=== PATIENT | female | born 2000 | race Caucasian/White ===

== ENCOUNTER 2024-10-19 11:54 | Emergency (ER) | payer MEDICAID, SELFPAY ==
[2024-10-19 11:55] VITALS: BP 128/71; PULSE 96; RESP 16; TEMP 36.3; O2SAT 99; BMI 34.9
--- NOTE | 2024-10-19 12:11 | EDS_ITS ---
HPI HPI - URI History of Present Illness Chief Complaint: Cold Sx Informant: patient Onset/Context/Timing Onset: Days Context: Gradual Onset Timing: Continuous Current Severity: Mild Maximum Severity: Mild Associated Symptoms Associated Symptoms: Positive for Nasal Congestion, Myalgias, Nausea, Vomiting and Nonproductive cough; Negative for Diarrhea Narrative Narrative: 24-year-old female no stated past medical history. Currently she is 10 weeks she is due in April 2025. Complaining of URI symptoms. Her stepfather had similar symptoms recently. She is also had some nausea and vomiting. Things that may be secondary to her preg kelly. She denies any dysuria. Nonproductive cough. No fever. No abdominal pain. No vaginal bleeding. Prior similar symptoms: Yes Recent Illness/Hospitalization: No ROS ROS ED ROS Narrative Cough. Nausea and vomiting. Constitutional Constitutional ED: Denies chills or fever(s) Eyes Eyes: Denies blurry vision ENT ENT ED: Reports rhinorrhea and sore throat; Denies ear pain Cardiovascular Cardiovascular: Denies chest pain Respiratory/Chest Respiratory/Chest: Reports cough; Denies dyspnea on exertion Gastrointestinal Gastrointestinal: Reports nausea and vomiting; Denies abdominal pain, constipation, diarrhea or melena Genitourinary Genitourinary ED: Denies dysuria or hematuria Musculoskeletal Musculoskeletal: Denies arthralgias, back pain or myalgias Integumentary Denies abscess or Abrasions Neurologic Neurologic: Denies headache(s) Psychiatric Psychiatric: Denies anxiety or depression Endocrine Endocrinology: Denies cold intolerance, heat intolerance, polydipsia, polyphagia or polyuria Hematologic/Lymphatic Hematologic/Lymphatic: Denies easy bleeding, easy bruising or lymphadenopathy Allergic/Immunologic Allergic/Immunologic ED: Denies mouth swelling, tongue swelling or urticaria PFSH PFSH no medical history Allergy/AdvReac Type Severity Reaction Status Date / Time No Known Allergies Allergy Verified 10/19/24 11:57 no surgical history EXAM Physical Exam Narrative Exam Narrative: 24-year-old female vital signs are stable afebrile. Pulse ox 99% on room air no signs hypoxia. Little boy with her. She is in no distress. H EENT exam moist mucous membranes. TMs normal. Normal speech. Neck nontender no lymphadenopathy. No meningismus. Lungs clear to auscultation bilaterally. No rales rhonchi or wheezing. Heart regular rate and rhythm rate about 95 no murmur. Chest wall ribs nontender. Abdomen soft nontender. No peritoneal signs. Moving all 4 extremities. Normal shift production associate. Normal dorsi plantarflexion. Calves are nontender without edema or cords. Back nontender. Lungs clear posteriorly. Neurologically she is awake and alert no focal motor deficits. Answering questions and following commands. Benign exam consistent with a viral URI. Const Vital Signs: 10/19/24 11:55 Temperature 97.3 F L Temperature Source Oral Pulse Rate 96 Respiratory Rate 16 Blood Pressure 128/71 H Blood Pressure Mean 90 Pulse Ox 99 Oxygen Delivery Method Room Air Positive well nourished and well developed; Negative for cachectic or contractures General Appearance ED: well developed and NAD; Negative for cachectic, contractures, cyanotic, diaphoretic or pallor Nutritional Appearance: Negative for cachectic HEENT Reports moist mucous membranes normocephalic and atraumatic Face and Sinus: Negative for sinus tenderness Teeth and Gingiva: Negative for caries Throat: posterior oropharynx normal Eyes PERRL and EOMs intact bilaterally General Eye ED: Negative for pale conjunctiva or scleral icterus Neck no lymphadenopathy, supple, no meningeal signs and no JVD General: Negative for anterior neck swelling or lymphadenopathy Resp normal respiratory effort and clear to auscultation bilaterally Effort and Inspection: Negative for retractions Auscultation: Negative for rales, rhonchi, wheezes or diminished lung sounds Cardio S1 normal heart sound, S2 normal heart sound and no murmurs Rate: regular rate Rhythm: regular rhythm GI non-tender, non-distended and no masses Inspection: Negative for abdominal distention Auscultation: normoactive bowel sounds Palpation: soft; Negative for tender or guarding Back/Spine no CVA tenderness and normal ROM General Back: Negative for CVA tenderness Cervical Spine: Negative for cervical spine tenderness Thoracic Spine / Upper Back: Negative for thoracic spinal tenderness Lumbar Spine / Lower Back: Negative for lumbar spinal tenderness Sacrum: Negative for tenderness Extremity normal to inspection and full ROM General Extremety ED: Negative for cyanosis, tenderness or other findings General Extremity: Negative for cyanosis or other findings Neuro oriented x3, CN's II-XII intact bilaterally and no sensory deficits noted Sensorium / Orientation: alert, oriented to person and oriented to time; Negative for orientation impaired, lethargic or stuporous Motor Exam: strength 5/5 throughout Psych mental status grossly normal Attitude: No agitated Mood & Affect: Negative for depressed, anxious or tearful Skin General Skin Exam: Negative for jaundice or pallor Lesions: no lesions Rashes: no rashes Trauma: Negative for abrasion, laceration or puncture MDM MDM MDM Narrative Medical decision making narrative: 24-year-old female 10 weeks with nausea and vomiting and URI consistent with virus. Lungs are clear I do not think she needs an x-ray. She and I discussed that she is comfortable with not getting an x-ray. She did want viral testing. I explained to her it would not change the course. COVID flu and RSV will be obtained. She will be given p.o. Zofran and then a p.o. fluid challenge. At this time I do not think she needs IV fluids unless she cannot hold fluids down. History & Record Review Discussion w/independent historian: Patient Lab Data Attestation: I reviewed the patient's lab results. Discharge Plan Triage Chief Complaint: Cold Sx ED Provider: Zurdo Vieira Dx/Rx/DC Orders Primary Care Provider: NOT,DEFINED Referrals: NOT,DEFINED [Primary Care Provider] - Print Language: Pashto
[2024-10-19] MEDS: Ondansetron ODT 4 MG Tablet PO (12:22)
== END 2024-10-19 13:39 | disposition home or self-care (01) ==
PROVIDERS: Emergency Provider Emergency Medicine; Visit Provider Emergency Medicine
DX: O21.9 Vomiting of pregnancy, unspecified (principal); Z3A.10 10 weeks gestation of pregnancy
CPT/HCPCS: 87631; 99282

== ENCOUNTER 2025-05-03 07:09 | Inpatient (IN) | payer MEDICAID, SELFPAY ==
[2025-05-03] VITALS (58 sets, daily range): BP systolic 83–139; BP diastolic 51–79; PULSE 63–103; RESP 16–18; TEMP 36.1–36.5; O2SAT 93–100; BMI 36.8
[2025-05-03] MEDS: Lactated Ringers 1,000 ML 50 ML IV (07:30)
[2025-05-03 07:51] LABS: Hematocrit 36.4 % (37-47); Hemoglobin 12.1 g/dL (12.0-15.0); Immature Granulocytes Count 0.050 X10^3/uL (0.0-0.0); Mean Corp Hgb Conc 33.2 g/dL (32-36); Mean Corpuscular Volume 86.1 fL (81-99); Mean Platelet Vol. 13.7 fl (6.2-12.0); NRBC Flagged by Analyzer 0 % (0-5); Platelet Count 163 K/mm3 (150-450); RBC Distribution Width CV 12.6 % (11.6-14.6); RBC Distribution Width SD 39.0 fl (35.1-43.9); Red Blood Count 4.23 M/mm3 (4.2-5.4); White Blood Count 9.4 K/mm3 (4.4-11.0)
[2025-05-03] MEDS: Oxytocin 15 Units/NS 250ml 15 UNITS/250 ML IV.SOLN 2 UNITS IV (08:21)
[2025-05-03] MEDS: Penicillin G Pot 5,000,000 UNITS in 0.9% Normal Saline (100mL MB+) 100 ML 150 UNITS IV (08:21)
--- NOTE | 2025-05-03 08:36 | PCM.HP.OB ---
HPI - General General Date of Admission: 05/03/25 Date of Service: 05/03/25 Chief Complaint: Induction HPI Narrative CORNELIA LEON, is a 25 F who presents elective induction of labor. GBS positive Maternal Data Information Final CECILIA: 05/10/25 Gestational age: 39 PFSH PFSH Home Medications ?Medication ?Instructions ?Recorded ?Last Taken ?Type ondansetron 4 mg disintegrating 4 mg PO Q6H PRN nausea and 10/19/24 Unknown Rx tablet vomiting #10 tabs Held on 05/03/25. Instructions: Order Completed aspirin 81 mg capsule 81 mg PO DAILY 05/03/25 05/02/25 History vit no.95-ferrous 1 tab PO DAILY 05/03/25 05/02/25 History fumarate 28 mg-folic acid 800 mcg tablet () Allergy/AdvReac Type Severity Reaction Status Date / Time No Known Allergies Allergy Verified 05/03/25 07:50 Social History Smoking Status: Never smoker History Elective abortions Hx Para 1 Spontaneous abortions Hx # Term Pregnancies Ectopic pregnancies Hx # Pregnancies Multiple births # of living children NST FHR Rate Baby A Baseline: 145 Variability:: Moderate Accelerations:: 15 x 15 Decelerations:: None NST Reactive:: Yes ROS Constitutional Constitutional: Denies fatigue, fever(s) or malaise Eyes Eyes: Denies change in vision ENT HEENT: Denies dizziness or headache(s) Cardiovascular Cardiovascular: Denies chest pain, dyspnea or lightheadedness Respiratory/Chest Respiratory/Chest: Denies cough or dyspnea Gastrointestinal Gastrointestinal: Denies change in bowel habits Genitourinary Genitourinary: Denies burning urination or genital lesions Integumentary Integumentary: Denies rash Neurologic Neurologic: Denies confusion, dizziness, headache(s), numbness or weakness Vital Signs Vital Signs Vital Signs: 05/03/25 07:21 05/03/25 07:21 05/03/25 07:21 Temperature 97.0 F L Temperature Source Temporal Pulse Rate Respiratory Rate 16 Blood Pressure BP Systolic BP Diastolic 05/03/25 07:22 05/03/25 07:22 Temperature Temperature Source Pulse Rate 103 H Respiratory Rate Blood Pressure 116/65 BP Systolic 116 BP Diastolic 65 Weight Weight: 113.307 kg Body Mass Index (BMI) 36.8 Physical Exam Const alert and no apparent distress General Appearance: cooperative HEENT normocephalic Resp normal respiratory effort Cardio regular rate GI soft to palpation GI Narrative: gravid, nontender, appropriate for gestational age Extremity no calf tenderness General Extremity: edema Skin no wounds Rashes: No rashes noted Psych activity/motor behavior normal Labs Labs Labs: Blood Type A POSITIVE Antibody Screen NEGATIVE Hct 36.4 % (37-47) L Hgb 12.1 g/dL (12.0-15.0) Syphilis Total Ab Pending Assessment & Plan (1) Elective induction of labor planned: PLAN: Hair bulb placed without difficulty /- (2) 39 weeks gestation of : (3) Positive GBS test: PLAN: PCN PLAN: Plan Hair bulb placed Epidural prn Pitocin per protocol
[2025-05-03 08:37] LABS: Syphilis Antibodies Nonreactive (Nonreactive)
[2025-05-03] MEDS: 0.9% Normal Saline Single 100 ML IV.SOLN. INTRA-UTER (11:05)
[2025-05-03] MEDS: Lactated Ringers 1,000 ML 999 ML IV (11:06)
[2025-05-03] MEDS: fentaNYL-bupivacaine (epidural) 100 ML BAG EPIDURAL ×2 (11:53→17:00)
[2025-05-03] MEDS: Penicillin G 3,000,000 Units 50 ML 100 UNITS IV (12:39)
--- NOTE | 2025-05-03 13:16 | PN.OBGYN_ITS ---
Subjective Subjective AROM for clear fluid. IUPC placed and fse. 3 /60/-2. Recent episode of hypotension. Fluid bolus in process. Objective Data Objective Data Vital Signs: Vital Signs Temp Pulse Resp BP Pulse Ox 97.0 F L 63 16 102/60 100 05/03/25 11:50 05/03/25 13:10 05/03/25 12:26 05/03/25 13:08 05/03/25 13:10 Weight: 113.307 kg Body Mass Index (BMI) 36.8 Intake & Output: Intake and Output for Last 24 Hours 05/01/25 05/02/25 05/03/25 23:59 23:59 23:59 Intake Total 328.49 / 328.49 Balance 328.49 / 328.49 Lab / Micro Data 05/03/25 07:30 Labs: Laboratory Results - last 24 hr 05/03/25 07:30: WBC 9.4, RBC 4.23, Hgb 12.1, Hct 36.4 L, MCV 86.1, MCH 28.6, MCHC 33.2, RDW Std Deviation 39.0, RDW Coeff of Mallory 12.6, Plt Count 163, MPV 13.7 H, Immature Gran % (Auto) 0.500, Neut % (Auto) 71.5 H, Lymph % (Auto) 18.5 L, [place] % (Auto) 6.8, Eos % (Auto) 2.4, Baso % (Auto) 0.3, Absolute Neuts (auto) 6.7, Absolute Lymphs (auto) 1.74, Nucleated RBC % 0, Syphilis Total Ab Nonreactive, Blood Type A POSITIVE, Antibody Screen NEGATIVE NST FHR Rate Baby A Baseline: 130 Variability:: Moderate Accelerations:: 15 x 15 Decelerations:: None NST Reactive:: Yes Uterine Activity:: q 2-3 Assessment & Plan (1) Positive GBS test: (2) 39 weeks gestation of : (3) Elective induction of labor planned:
[2025-05-03] MEDS: Lactated Ringers 1,000 ML 200 ML IV (15:22)
[2025-05-03] MEDS: Penicillin G 3,000,000 Units 50 ML 150 UNITS IV (17:18)
--- NOTE | 2025-05-03 20:47 | EX.PCM.OBVAG ---
Assessment & Plan (1) (spontaneous vaginal delivery): Maternal Data Information Final CECILIA: 05/10/25 Gestational age: 39 Vaginal Delivery Maternal Presentation Maternal Presentation: Elective Induction Type of Induction: Pitocin, Hair Bulb and Amniotomy Vaginal Delivery Information Procedure Performed: Spontaneous Vaginal Delivery Surgeon/Practitioner: Ebonie Malhotra Date of Procedure: 05/03/25 Pre-Procedure Diagnosis: term Post-Procedure Diagnosis: Type of anesthesia: Epidural Estimated Blood Loss: 100 cc Time of Delivery: 20:29 Findings Description of procedure: Hair bulb induction of labor. Arom at 4 cm for clear fluid. She was adequately treated for GBS. Pitocin augmentation until complete. Once complete the patient pushed twice and delivered over an intact peritoneum. The anterior and posterior shoulders delivered easily followed by the remainder of the body. The infant cried upon delivery and was placed on the maternal abdomen. The cord was clamped and cut. The placenta delivery spontaneously. There were no laceration. All sponges, and instrument counts were correct. Presentation: Vertex and MARIVEL Amniotic Membrane Rupture Type: Artificial Amniotic Fluid Description: Clear Placental Delivery Description: Spontaneous Placenta Disposition: [facility] Specimen collected: No Cord Vessel Description: 3 Vessels Cord Entanglement: None A Gender: Male (1 minute): 9 (5 minute): 9 Delayed Cord Clamping: Yes Stacking Machine Operator wind development director: No Post Vaginal Deli Medications given after delivery: IV Pitocin Episiotomy Description: None Laceration: None Complication Complications: No
[2025-05-03] MEDS: Oxytocin 15 Units/NS 250ml 15 UNITS/250 ML IV.SOLN 83 UNITS IV (21:04)
[2025-05-04] VITALS (12 sets, daily range): BP systolic 112–137; BP diastolic 66–80; PULSE 72–99; RESP 16–18; TEMP 36.2–36.8; O2SAT 94–99
--- NOTE | 2025-05-04 06:37 | PN.OBGYN_ITS ---
Subjective Subjective Doing well. Ambulating and voiding without difficulty. Mild lochia. Breast feeding. Objective Data Objective Data Vital Signs: Vital Signs Temp Pulse Resp BP Pulse Ox O2 Del Method 98.2 F 72 16 112/68 99 Room Air 05/04/25 03:49 05/04/25 03:49 05/04/25 03:49 05/04/25 03:49 05/04/25 03:49 05/04/25 03:49 Oxygen Delivery Method Room Air Weight: 113.307 kg Body Mass Index (BMI) 36.8 Intake & Output: Intake and Output for Last 24 Hours 05/02/25 05/03/25 05/04/25 23:59 23:59 23:59 Intake Total 3450.00 / 3450.00 250 / 250 Output Total 900 / 900 600 / 600 Balance 2550.00 / 2550.00 -350 / -350 Lab / Micro Data 05/03/25 07:30 Labs: Laboratory Results - last 24 hr 05/03/25 07:30: WBC 9.4, RBC 4.23, Hgb 12.1, Hct 36.4 L, MCV 86.1, MCH 28.6, MCHC 33.2, RDW Std Deviation 39.0, RDW Coeff of Mallory 12.6, Plt Count 163, MPV 13.7 H, Immature Gran % (Auto) 0.500, Neut % (Auto) 71.5 H, Lymph % (Auto) 18.5 L, [place] % (Auto) 6.8, Eos % (Auto) 2.4, Baso % (Auto) 0.3, Absolute Neuts (auto) 6.7, Absolute Lymphs (auto) 1.74, Nucleated RBC % 0, Syphilis Total Ab Nonreactive, Blood Type A POSITIVE, Antibody Screen NEGATIVE ROS Constitutional Constitutional: Denies headache(s) Cardiovascular Cardiovascular: Denies chest pain or dyspnea Gastrointestinal Gastrointestinal: Denies nausea or vomiting Genitourinary Genitourinary: Denies dysuria Physical Exam Const alert, oriented x3 and no apparent distress Resp normal respiratory effort GI soft to palpation and non-tender Narrative: Fundus firm, below umbilicus. Uterus Palpation: uterus fundus firm ( below umbilicus) Extremity normal to inspection and full ROM Neuro oriented x3 and CN's II-XII intact bilaterally Psych mental status grossly normal Assessment & Plan (1) (spontaneous vaginal delivery): PLAN: Plan Routine care
[2025-05-05 03:22] VITALS: BP 115/63; PULSE 80
[2025-05-05 03:23] VITALS: BP 115/63; PULSE 83; RESP 16; TEMP 36.9; O2SAT 97
[2025-05-05 07:18] VITALS: BP 118/69; PULSE 86; O2SAT 96
[2025-05-05 07:25] VITALS: BP 118/69; PULSE 76; RESP 16; TEMP 36.4; O2SAT 98
--- NOTE | 2025-05-05 07:52 | PCM.PN.OB ---
Subjective Subjective Pain well controlled, average lochia. Denies MOORE or visual changes. Objective Data Objective Data Vital Signs: Vital Signs Temp Pulse Resp BP Pulse Ox O2 Del Method 98.4 F 86 16 118/69 96 Room Air 05/05/25 03:23 05/05/25 07:18 05/05/25 03:23 05/05/25 07:18 05/05/25 07:18 05/05/25 03:23 Oxygen Delivery Method Room Air Weight: 113.307 kg Body Mass Index (BMI) 36.8 Intake & Output: Intake and Output for Last 24 Hours 05/03/25 05/04/25 05/05/25 23:59 23:59 23:59 Intake Total 3450.00 / 3450.00 250 / 250 Output Total 900 / 900 600 / 600 Balance 2550.00 / 2550.00 -350 / -350 Lab / Micro Data 05/03/25 07:30 Physical Exam Const alert and no apparent distress Narrative: Fundus firm, below umbilicus. Assessment & Plan (1) (spontaneous vaginal delivery): PLAN: patient doing well, d/c home today
--- NOTE | 2025-05-05 07:55 | DCINST_ITS ---
Discharge Instructions Diet Discharge Diet: No restrictions DC O2, CPAP, BIPAP needs Home O2 Discharge instructions: No Dressing / Incision May resume sexual activity in: 6 weeks Dressing / Incision Call your doctor if your incision/area has: Continuous Slow Oozing, Sudden Increased Bleeding, Foul Smelling Discharge and Swelling at the incision site Call your doctor if you observe: Fever of 101 or Higher and Inability to urinate Follow Up Care Please Follow Up With: Ebonie Malhotra MD When: Follow up with our office in 1-2 and 6 weeks or as needed. [phone] Test Results: Test results from this visit will be discussed in further detail at your follow- up appointment, if applicable. Discharge Plan Admission Admit Date/Time: 05/03/25 07:09 Primary Reason for Your Visit: Vaginal delivery Attending Provider: Ebonie Malhotra Primary Care Provider: ASHLEIGH SIFUENTES Discharge Orders/Prescriptions Prescriptions: Continued PNV cmb#95-ferrous fumarate-FA [] 28 mg iron- 800 mcg tablet 1 tab PO DAILY Discontinued ondansetron 4 mg tablet,disintegrating 4 mg PO Q6H PRN (Reason: nausea and vomiting) Qty: 10 0RF aspirin 81 mg capsule 81 mg PO DAILY Referrals / Follow Up: ASHLEIGH SIFUENTES [Other] Disposition Disposition (needs filled in before D/C Order can be placed): Home, Self Care
[2025-05-05 12:12] VITALS: BP 128/76; PULSE 83
[2025-05-05 12:17] VITALS: BP 128/76; PULSE 83; RESP 16; TEMP 36.6
--- NOTE | 2025-05-05 20:11 | CASEMGMT ---
Social Work Assessment Labor and Delivery Unit Patient Address: [address] [address] Phone number:? [phone] Date of Referral: 05/04/2025 Time of Referral:? 10:00am Referred By: physician Date of Intervention: ??05/05/2025 Time of Intervention:? 11:00am Reason for Referral:? Lack of support SW completed chart review and acknowledges social work consult due to lack of consult. SW presented to bedside and introduced self to mother of baby (YOVANA ? Tracey).? SW completed psychosocial assessment.? MOB receptive to visit.?? History obtained from: medical records, MOB Household composition:? YOVANA lives with her mother, step father and her 5 year old son, Mike. Patient's parent/guardian status:? ?YOVANA reports that she and the father of her 5 year old have been going through a divorce that is lasting awhile due to the father being deployed.? MOB and the father of ?had only been together for a month when she became . MOB explained that the relationship quickly fell apart and she moved back in with her parents.?? MOB states that she is not stopping FOB from seeing baby but stated it will be on her terms.? MOB stated concerns with FOB ability and desire to be part of babys life, as FOB has not bought any items for baby and has not shown interest in routine visits.? MOB denies any physical or verbal abuse.? Medical History: ?YOVANA is a 25 year old female who is 2, para 1 now 2 following labor and delivery of . MOB received routine care.? YOVANA presented to hospital for induction of ?labor. YOVANA delivered baby on 5at 39 weeks gestation. Baby boy, Pantera, was born weighing 7 pounds 5 ounces with apgars of 9 and 9 at one and five minutes of life.? Baby [facility] be [facility] by [facility] for pediatric[facility].? Educational Status:? MOB reports that she graduated from high school.? No concerns with reading, learning or comprehension.? 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 MOB reports being off for the summer and will be at home with baby until the school year starts.? Patient states that she is being paid during the summer and has no financial concerns at this time.? Infant Supplies: MOB has obtained all the necessary baby supplies, including car seat, safe sleep space, clothes, diapers and wipes.? Childcare/Caregiver(s):? MOB will be primary caregiver for baby while on maternity leave.? MOB state she is still working on babysitting during the school year but her mom and step dad are willing to help anytime needed.? Transportation:?? MOB reports to having reliable transportation. Programs/Agencies Involved: ???MOB has her children enrolled in Medicaid and SNAP Children Services/Legal Issues:??? No history of CSB involvement, no issues or concerns warranting referral at this time. Behavioral Health Issues: ??Mental Health History: MOB denies any mental health history.?? Substance Use History: MOB denies drug and alcohol use. ???Family History:? MOB denies any drug, alcohol or mental health disorders. ???Drug Screens: ?No drug screens observed in chart review. Family/Social Stressors:? MOB state the situation with newborns father is stressful but not overwhelming.? Support Systems: MOB reports a positive relationship with her soon to be ex and states that he has also been supportive during her .? MOB also report having support from her mom, step dad, dad and step mom.? Depression/Shaken Baby/Safe Sleeping: ?SW educated MOB on signs and symptoms of baby blues and mood and anxiety disorders to be mindful of during this period. SW provided literature for MOB to review regarding these topics.? SW educated MOB on shaken baby syndrome, and ABCs of safe sleep.? ASSESSMENT: ?MOB was receptive and open during SW visit. Baby was in bassinette sleeping during assessment, MOB would often look in on baby and move baby closer to bed.? MOB appeared engaged and excited to go home and settle in with baby and son.? ? PLAN:?? No other services requested or indicated. MOB and baby to be discharged when medically ready. Parents were provided literature regarding: signs and symptoms of baby blues and mood and anxiety disorders, Help Me Grow, shaken baby prevention, ABCs of safe sleep and a list of county resources that are available for them should any needs present themselves. Gabrielle Briones, GREENS KEEPER, CALL CENTER ASSISTANT
== END 2025-05-05 13:38 | disposition home or self-care (01) | DRG 560 ==
PROVIDERS: Admitting Provider Obstetrics & Gynecology; Referring Provider Obstetrics & Gynecology; Visit Provider Obstetrics & Gynecology
DX: O98.82 Other maternal infectious and parasitic diseases complicating childbirth (principal); Z37.0 Single live birth; B95.1 Streptococcus, group B, as the cause of diseases classified elsewhere; Z3A.39 39 weeks gestation of pregnancy
CPT/HCPCS: 59025; 59050; 85025; 86780; 86850; 86900; 86901; 99221; G0378